=== PATIENT | male | born 1990 | race Caucasian/White ===

== ENCOUNTER 2017-10-09 20:39 | Emergency (ER) | payer BC, SELFPAY ==
[2017-10-09 20:40] VITALS: BP 138/71; PULSE 93; RESP 17; TEMP 36.9; O2SAT 100; BMI 25.0
--- NOTE | 2017-10-09 21:05 | EKG12_ITS ---
Test Reason : DIZZINESS Blood Pressure : / mmHG Vent. Rate : 069 BPM Atrial Rate : 069 BPM P-R Int : 150 ms QRS Dur : 102 ms QT Int : 372 ms P-R-T Axes : 040 075 063 degrees QTc Int : 398 ms Normal sinus rhythm Normal ECG Confirmed by PÉREZ ALVAREZ, ELLIE ([id number]), online editor CASSIE JOSE ([id number]) on 10/13/2017 8:32:40 AM Referred By: SHIRA Confirmed By:ELLIE ORTEZ MD
[2017-10-09] MEDS: 0.9% Normal Saline 1,000 ML 1000 ML IV (21:14)
[2017-10-09] MEDS: Meclizine 12.5 MG Tablet 25 MG PO (21:14)
[2017-10-09 21:25] LABS: Absolute Lymphocyte Count 4.18 X10^3/ul (0.83-4.51); Absolute Neutrophil Count 3.3 X10^3/uL (2.0-7.7); Basophil# 0.01 X10^3/uL; Basophil% 0.1 % (0-1); Eosinophil# 0.13 X10^3/uL; Eosinophils% 1.6 % (0-5); Hematocrit 41.7 % (40-54); Lymphocyte # 4.18 X10^3/ul (4.0); Mean Corp Hgb Conc 33.6 g/gl (32-36); Mean Corpuscular Hgb 31.3 pg (27.0-32.0); Mean Corpuscular Volume 93.3 fL (80-94); Monocyte# 0.56 X10^3/uL; Monocyte% 6.8 % (0-10); Neutrophil # 3.31 X10^3/uL (2.7-7.7); Neutrophil % 40.5 % (47-70); Platelet Count 156 K/mm3 (150-450); RBC Distribution Width CV 13.3 % (11.6-14.6); Red Blood Count 4.47 M/mm3 (4.6-6.2); White Blood Count 8.2 K/mm3 (4.4-11.0)
[2017-10-09 21:28] LABS: POSITIVE COUNT NO; POSITIVE DIFFERENTIAL NO; POSITIVE MORPHOLOGY NO
[2017-10-09 21:39] LABS: Anion Gap 6 (5-15); BUN 18 mg/dL (7-18); BUN/Creat Ratio 19.8 RATIO (10-20); Calcium,Total 8.7 mg/dL (8.5-10.1); Chloride 110 mmol/L (98-107); Creatinine, Serum 0.91 mg/dL (0.70-1.30); EST Glomerular Filtration Rate 106 mL/min (>60); Est Glom Filt Rate - Afr Amer 128 mL/min (>60); Estimated Creatinine Clearance 145.73 ml/min; Glucose 89 mg/dL (74-106); Potassium 3.8 mmol/L (3.5-5.1); Sodium Level 145 mmol/L (136-145)
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
--- NOTE | 2017-10-09 22:12 | ED.DEP ---
ED Disposition - Plan for ED Patient: Disposition: Home or Assisted Living Chief Complaint: Dizziness Instructions: ED Vertigo Unspecified Prescriptions: Meclizine HCl [Antivert] 25 mg PO 4X/DAY PRN PRN #20 tablet PRN Reason: Dizziness Referrals: Micah Espinoza MD [Primary Care Provider] - 1 Week if not improving
[2017-10-09 22:20] VITALS: BP 113/64; PULSE 68; RESP 20; O2SAT 96
--- NOTE | 2017-10-09 22:20 | ED.RN ---
REVIEWED D/C INSTRUCTIONS, FOLLOW UP CARE, PRESCRIPTION, AND S/S THAT WOULD WARRANT A RETURN TO THE ED WITH PT. PT VERBALIZED AN UNDERSTANDING AND DENIES FURTHER QUESTIONS FOR THIS RN. PT SKIN P/W/D, RESP EVEN AND UNLABORED, PT A&O X 3, NO DISTRESS NOTED. PT AMBULATED OUT OF ED, GAIT STEADY.
== END 2017-10-09 22:21 | disposition home or self-care (01) ==
PROVIDERS: Emergency Provider Emergency Medicine; Family Provider Family Medicine; PCP Family Medicine
DX: R42 Dizziness and giddiness (principal); Z72.0 Tobacco use
CPT/HCPCS: 80048; 85025; 93005; 96360; 99285; J7030

== ENCOUNTER 2017-11-17 16:53 | Emergency (ER) | payer BC, SELFPAY ==
[2017-11-17 16:53] VITALS: BP 133/68; PULSE 95; RESP 16; TEMP 36.7; O2SAT 96; BMI 26.9
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
[2017-11-17 19:06] VITALS: BP 127/85; PULSE 85; RESP 17; O2SAT 97
== END 2017-11-17 19:07 | disposition home or self-care (01) ==
PROVIDERS: Emergency Provider Emergency Medicine; Family Provider Family Medicine; PCP Family Medicine
DX: S06.0X9A Concussion with loss of consciousness of unspecified duration, initial encounter (principal); V43.52XA Car driver injured in collision with other type car in traffic accident, initial encounter; Y93.9 Activity, unspecified; Y92.9 Unspecified place or not applicable; R07.89 Other chest pain; Z72.0 Tobacco use
CPT/HCPCS: 70450; 71046; 99282

== ENCOUNTER 2023-07-01 11:33 | Emergency (ER) | payer OTHER, SELFPAY ==
[2023-07-01 11:35] VITALS: BP 135/93; PULSE 96; RESP 18; TEMP 36.3; O2SAT 98; BMI 28.6
--- NOTE | 2023-07-01 12:45 | EX.ED.DYSGE1 ---
HPI History of Present Illness Chief Complaint: Palpitations Informant: patient Onset/Context/Timing Onset: Weeks Narrative Narrative: Patient presents secondary to palpitations. He states for the past month he has been having episodes of palpitations which he describes as his heart beating very hard as well as fast. He will get lightheaded. He states this often happens when he is sleeping and wake him up from sleep. He states it does terminate rather quickly and he does not do anything specific other than taking some slow deep breaths. Patient denies any change in caffeine intake. He does not take any [id number] medications. He denies drug or alcohol abuse. He quit smoking about 3 months ago. I did note that the patient was seen here about 10 years ago with palpitations. He states at that time they told him that it was anxiety induced. Patient does not feel that he has anxiety and has not been stressed recently. PFSH PFSH Medical History no medical history no medical history Home Medications NK 11/17/17 [History Last Taken Unknown] Allergy/AdvReac Type Severity Reaction Status Date / Time No Known Allergies Allergy Verified 07/01/23 11:34 Social History (Updated 07/01/23 @ 12:[address] Lali Pacheco MD) Smoking Status: Former smoker ROS ROS ED Constitutional Constitutional ED: Denies chills or fever(s) Eyes Eyes: Denies change in vision or discharge from eye(s) ENT ENT ED: Denies discharge from eye(s), rhinorrhea or sore throat Cardiovascular Cardiovascular: Reports palpitations and racing heartbeat; Denies chest pain Respiratory/Chest Respiratory/Chest: Denies cough or dyspnea Gastrointestinal Gastrointestinal: Denies abdominal pain, nausea or vomiting Genitourinary Genitourinary ED: Denies dysuria Musculoskeletal Musculoskeletal: Denies back pain or extremity pain Integumentary Denies Abrasions or rash Neurologic Neurologic: Denies headache(s) or weakness Psychiatric Psychiatric: Denies anxiety or depression Allergic/Immunologic Allergic/Immunologic ED: Denies lip swelling or urticaria EXAM Physical Exam Const Vital Signs: 07/01/23 11:35 07/01/23 13:02 07/01/23 12:50 Temperature 97.4 F L Temperature Source Temporal Pulse Rate 96 74 Respiratory Rate 18 22 H Respiratory Effort Normal Non-Labored Blood Pressure 135/93 H Blood Pressure Mean 107 Pulse Ox 98 Oxygen Delivery Method Room Air Positive well nourished and well developed General Appearance ED: well developed HEENT Reports moist mucous membranes Eyes EOMs intact bilaterally Neck Neck Narrative: Slight fullness over the anterior neck especially just to the right of midline. Chest Wall inspection of chest normal and palpation of chest normal Resp normal respiratory effort and clear to auscultation bilaterally Cardio regular rate and regular rhythm GI non-tender Palpation: soft Extremity normal to inspection Neuro oriented x3 and no sensory deficits noted Motor Exam: strength 5/5 throughout Psych mental status grossly normal Skin no rashes or lesions noted MDM MDM MDM Narrative Medical decision making narrative: Patient placed on radiation monitor. EKG obtained to evaluate for cardiac arrhythmia/ischemia. Chest x-ray obtained to evaluate for acute lung pathology, cardiac size, or mediastinal abnormality. Labwork obtained to evaluate for leukocytosis, anemia, and electrolyte derangement. Lab Data Attestation: I reviewed the patient's lab results. Labs: Laboratory Results - last 24 hr 07/01/23 13:15 WBC 7.5 RBC 5.13 Hgb 15.9 Hct 46.9 MCV 91.4 MCH 31.0 MCHC 33.9 RDW Std Deviation 42.5 RDW Coeff of Lorenzo 12.6 Plt Count 189 MPV 9.4 Immature Gran % (Auto) 0.100 Neut % (Auto) 56.6 Lymph % (Auto) 35.6 [place] % (Auto) 7.5 Eos % (Auto) 0.1 Baso % (Auto) 0.1 Absolute Neuts (auto) 4.2 Absolute Lymphs (auto) 2.66 Nucleated RBC % 0 Sodium 137 Potassium 3.7 Chloride 105 Carbon Dioxide 30.0 Anion Gap 2 L BUN 14 Creatinine 0.97 Estim Creat Clear Calc 129.46 Est GFR (MDRD) Af Amer 114 Est GFR (MDRD) Non-Af 94 BUN/Creatinine Ratio 14.4 Glucose 101 Calcium 10.0 Troponin I High Sens 5 TSH 0.94 Radiography Chest X-Ray - ED: 1 View, Read by ED Physician, Normal, Heart, Lungs and Mediastinum Diagnostic Testing: Clinical Impression(s) from Imaging Studies Chest X-Ray 07/01/23 13:35 IMPRESSION: No evidence of acute cardiopulmonary process. Electronically Signed: Vidal Chung DO at 13:45 EST , EKG Initial EKG: Attestation: I personally reviewed and interpreted this EKG as follows: Interpretation: Sinus Rhythm (Sinus at 74 with no acute ischemia.) Treatment and Re-Evaluation :: CBC was normal white count 7.5 with a hemoglobin of 15.9. Chemistry studies unremarkable with potassium 3.7. Troponin is normal at 5 and TSH is normal at 0.94. EKG is sinus rhythm with no acute ischemia. Chest x-ray per my interpretation was no acute findings. Radiology interpretation reviewed and agrees. On repeat evaluation patient resting comfortably. He stated around 1:00 shortly after he had a very brief episode where he felt like his heart was pounding hard and racing. I looked back at the radiation monitor. He did have a time where his heart rate went up into the 90s, but no significant arrhythmia noted. His electrolytes at this time are unremarkable and his TSH is normal. He will be referred to cardiology for follow-up as he may need a Holter monitor. Return instructions provided. Discharge Plan Triage Chief Complaint: Palpitations ED Provider: Lali Pacheco Dx/Rx/DC Orders Clinical Impression: Palpitations Instructions: ED Palpitations Prescriptions: No Action NK Primary Care Provider: Micah Espinoza Referrals: Rolando Barraza MD [Med Staff - Active Staff] - As Needed Micah Espinoza MD [Primary Care Provider] - 1-2 Weeks Disposition Disposition: Home, Self Care
[2023-07-01 13:02] VITALS: PULSE 74; RESP 22
[2023-07-01 13:24] LABS: Absolute Lymphocyte Count 2.66 X10^3/uL (0.83-4.51); Absolute Neutrophil Count 4.2 X10^3/uL (2.0-7.7); Basophil# 0.01 X10^3/uL; Basophil% 0.1 % (0-1); Eosinophil# 0.01 X10^3/uL; Eosinophils% 0.1 % (0-5); Hematocrit 46.9 % (40-54); Hemoglobin 15.9 g/dL (13.0-16.5); Lymphocyte # 2.66 X10^3/ul (0.83-4.51); Lymphocyte % 35.6 % (19-41); Mean Corp Hgb Conc 33.9 g/dL (32-36); Mean Corpuscular Volume 91.4 fL (80-94); Mean Platelet Vol. 9.4 fl (6.2-12.0); Monocyte# 0.56 X10^3/uL; Monocyte% 7.5 % (0-10); NRBC Flagged by Analyzer 0 % (0-5); Neutrophil # 4.23 X10^3/uL (2.7-7.7); Neutrophil % 56.6 % (47-70); Platelet Count 189 K/mm3 (150-450); RBC Distribution Width CV 12.6 % (11.6-14.6); RBC Distribution Width SD 42.5 fl (35.1-43.9); Red Blood Count 5.13 M/mm3 (4.6-6.2); White Blood Count 7.5 K/mm3 (4.4-11.0)
--- NOTE | 2023-07-01 13:35 | RAD_ITS ---
STUDY: X-RAY CHEST REASON FOR EXAM: Male, 32 years old. chest pain TECHNIQUE: Single AP portable view of the chest. COMPARISON: 11/17/2017 FINDINGS: The lungs are clear and expanded. There is no demonstrated pleural abnormality. Normal size heart. Normal mediastinum and david. Normal visualized pulmonary arteries. Normal visualized aortic arch and descending thoracic aorta. Normal visualized thoracic spine. Normal visualized ribs, clavicles, and shoulders. There is no demonstrated abnormality of the visualized soft tissue structures of the upper abdomen. RAD/Chest 1 View (Portable) IMPRESSION: No evidence of acute cardiopulmonary process. Electronically Signed: Vidal Chung DO at 13:45 EST ,
[2023-07-01 13:47] LABS: Anion Gap 2 (5-15); BUN 14 mg/dL (7-18); BUN/Creat Ratio 14.4 RATIO (10-20); Chloride 105 mmol/L (98-107); Creatinine, Serum 0.97 mg/dL (0.70-1.30); EST Glomerular Filtration Rate 94 mL/min (>60); Est Glom Filt Rate - Afr Amer 114 mL/min (>60); Estimated Creatinine Clearance 129.46 ml/min; Glucose 101 mg/dL (74-106); Potassium 3.7 mmol/L (3.5-5.1); Sodium Level 137 mmol/L (136-145); Thyroid Stim Hormone (TSH) 0.94 uIU/mL (0.358-3.74); Troponin-I HS (w/2H Reflex) 5 pg/mL (3.0-78.0)
[2023-07-01 14:00] VITALS: RESP 18
[2023-07-01 15:21] LABS: Reflex Troponin-HS? (from REC) Y
== END 2023-07-01 14:50 | disposition home or self-care (01) ==
PROVIDERS: Emergency Provider Emergency Medicine; PCP Family Medicine; Visit Provider Emergency Medicine
DX: R00.2 Palpitations (principal); Z87.891 Personal history of nicotine dependence
CPT/HCPCS: 71045; 80048; 84443; 84484; 85025; 93005; 99283; A4216

== ENCOUNTER → 2023-07-07 | Outpatient (CLI) | payer OTHER, SELFPAY ==
[2023-07-07 17:54] LABS: T4 Free Direct 1.12 ng/dL (0.76-1.46)
[2023-07-09 04:07] LABS: Thyroid Peroxidase AB 120 IU/mL (0-34)
== END | disposition home or self-care (01) ==
LOC: MTLAB 16:55
PROVIDERS: PCP Family Medicine; Referring Provider Family Medicine; Visit Provider Family Medicine
DX: G47.00 Insomnia, unspecified (principal)
CPT/HCPCS: 36415; 84439; 86376